=== PATIENT | female | born 1950 | race Caucasian/White ===

== ENCOUNTER → 2025-05-18 08:41 | Outpatient (BNVA) | payer MEDICARE, SELFPAY | PROVIDERS: Visit Provider Nurse Practitioner Family | DX: M71.342 Other bursal cyst, left hand (principal); L57.8 Other skin changes due to chronic exposure to nonionizing radiation; L81.4 Other melanin hyperpigmentation; D22.5 Melanocytic nevi of trunk; D48.5 Neoplasm of uncertain behavior of skin; L57.0 Actinic keratosis | CPT/HCPCS: 11104; 17000; 99203 ==

== ENCOUNTER → 2025-06-03 08:39 | Outpatient (BNVA) | payer MEDICARE, SELFPAY | PROVIDERS: Visit Provider Dermatology | DX: D23.4 Other benign neoplasm of skin of scalp and neck (principal); M71.342 Other bursal cyst, left hand | CPT/HCPCS: 99213 ==

== ENCOUNTER → 2025-06-22 13:52 | Outpatient (BNVA) | payer MEDICARE, SELFPAY | PROVIDERS: Visit Provider Student in an Organized Health Care Education/Training Program | DX: M79.642 Pain in left hand (principal); M67.442 Ganglion, left hand | CPT/HCPCS: 73130; 99204 ==